=== PATIENT | male | born 1945 | race Caucasian/White ===

== ENCOUNTER 2016-08-15 08:14 | Inpatient (IN) | payer OTHER ==
[~2016-08-15] VITALS: Ht 177.8 cm; Wt 78.5 kg
[~2016-08-15 08:14] MED LIST: ACTOS15 MG PO; ACTOS45 MG PO; AMARYL1 MG PO; AMARYL2 MG PO; ANORO ELLIPTA1 EACH IH; CALCIUM ACETAT667 MG PO; COQ-10100 MG PO; COUMADIN2 MG PO; COUMADIN4 MG PO; ELIQUIS2.5 MG PO; ENDOCET 5-3251 EACH PO; FOLIC ACID-VIT1 EAC1 PO; FOLIC ACID0.4 MG PO; GABAPENTIN100 MG PO; GLIMEPIRIDE2 MG PO; NEURONTIN100 MG PO; OMEPRAZOLE20 MG PO; OMEPRAZOLE40 M1 PO; OXAYDO5 MG PO; PRAVASTATIN SOD40 MG PO; PROTONIX40 MG PO; PROVENTIL HFA6.7 GM IH; RENVELA800 MG PO; ROXICODONE5 MG PO; SENSIPAR30 MG PO; VALIUM5 MG PO; VITAMIN B12-FO1 EACH PO; VITAMIN C1000 M1 PO; VITAMIN D2000 UNI1 PO; WARFARIN SODIUM6 MG PO
[2016-08-15 12:46] VITALS: BP 97/43
[2016-08-15 12:49] LABS: POINT-OF-CARE METER ID UU14174212
[2016-08-15 14:02] LABS: METH RESISTANT S AUREUS PCR NEGATIVE (NEGATIVE); PROBE CHECK PASS; SPECIMEN PROCESSING CONTROL PASS
[2016-08-15 14:25] VITALS: BP 109/45
[2016-08-15 15:42] LABS: POINT-OF-CARE METER ID UU14174212
[2016-08-15 17:48] LABS: POINT-OF-CARE METER ID UU13113675; POINT-OF-CARE USER ID 515036437
[2016-08-15 18:21] LABS: HEMATOCRIT 30.2 % (38.0-50.0); MCHC 28.8 G/DL (30.0-36.0); MCV 97.1 FL (86-99); PLATELET COUNT 207 K/uL (156-360); RBC DIS.WIDTH-CV 19.8 % (11.8-14.6); RBC DIS.WIDTH-SD 68.8 % (39-53); RED BLOOD COUNT 3.11 M/uL (4.00-5.50); WHITE BLOOD COUNT 9.7 K/uL (4.1-10.2)
[2016-08-15 18:38] LABS: ANION GAP 9 MEQ/L (2-14); CHLORIDE 97 MEQ/L (99-109); POTASSIUM 4.4 MEQ/L (3.7-5.4); SAMPLE HEMOLYSIS CHECK 0; SAMPLE ICTERIC CHECK 0; SAMPLE LIPEMIA CHECK 0; SODIUM 141 MEQ/L (136-147)
[2016-08-15 18:43] LABS: GFR ESTIMATE (CALCULATED) 16 mL/min/; GLUCOSE 70 mg/dL (70-99); UREA NITROGEN (BUN) 25 mg/dL (9-23)
[2016-08-15 18:48] LABS: TROP-I INTERPRETATION NEGATIVE; TROPONIN-I 0.06 ng/mL (0.0-0.30)
[2016-08-15 19:54] LABS: POINT-OF-CARE METER ID UU13113675
[2016-08-15 21:20] VITALS: BP 94/57
[2016-08-15 21:55] VITALS: BP 94/57
[2016-08-16] VITALS (7 sets, daily range): BP systolic 84–123; BP diastolic 41–89
[2016-08-16 00:55] LABS: POINT-OF-CARE METER ID UU14188577
[2016-08-16 08:40] LABS: POINT-OF-CARE METER ID UU14188577
[2016-08-16 09:06] LABS: HEMATOCRIT 30.5 % (38.0-50.0); MCH 28.3 PG (29.0-34.0); MCHC 29.2 G/DL (30.0-36.0); MCV 96.8 FL (86-99); MEAN PLAT.VOLUME 10.5 uM^3 (9.0-12.4); PLATELET COUNT 191 K/uL (156-360); RBC DIS.WIDTH-CV 19.6 % (11.8-14.6); RBC DIS.WIDTH-SD 68.2 % (39-53); RED BLOOD COUNT 3.15 M/uL (4.00-5.50); WHITE BLOOD COUNT 9.4 K/uL (4.1-10.2)
[2016-08-16 09:32] LABS: ANION GAP 12 MEQ/L (2-14); CHLORIDE 96 MEQ/L (99-109); GFR ESTIMATE (CALCULATED) 13 mL/min/; POTASSIUM 4.7 MEQ/L (3.7-5.4); SAMPLE HEMOLYSIS CHECK 0; SAMPLE ICTERIC CHECK 0; SAMPLE LIPEMIA CHECK 0; SODIUM 141 MEQ/L (136-147); UREA NITROGEN (BUN) 33 mg/dL (9-23)
[2016-08-16 09:33] LABS: GLUCOSE 107 mg/dL (70-99)
[2016-08-16 16:37] LABS: POINT-OF-CARE METER ID UU14149397
[2016-08-16 22:43] LABS: POINT-OF-CARE METER ID UU14149397
[2016-08-17 00:11] VITALS: BP 101/42
[2016-08-17 05:09] VITALS: BP 101/55
[2016-08-17 06:18] LABS: POINT-OF-CARE METER ID UU14188577
[2016-08-17 08:45] VITALS: BP 93/52
[2016-08-17 09:23] LABS: POINT-OF-CARE METER ID UU14149397
[2016-08-17 09:47] LABS: POINT-OF-CARE METER ID UU14149397
[2016-08-17 10:23] LABS: POINT-OF-CARE METER ID UU14149397
[2016-08-17 11:47] LABS: POINT-OF-CARE METER ID UU13113675
[2016-08-17 13:50] LABS: MCH 27.5 PG (29.0-34.0); MCHC 29.2 G/DL (30.0-36.0); MCV 94.2 FL (86-99); MEAN PLAT.VOLUME 9.7 uM^3 (9.0-12.4); PLATELET COUNT 174 K/uL (156-360); RBC DIS.WIDTH-CV 19.8 % (11.8-14.6); RBC DIS.WIDTH-SD 67.6 % (39-53); RED BLOOD COUNT 2.76 M/uL (4.00-5.50); WHITE BLOOD COUNT 12.2 K/uL (4.1-10.2)
[2016-08-17 13:56] LABS: ANION GAP 14 MEQ/L (2-14); CHLORIDE 94 MEQ/L (99-109); GFR ESTIMATE (CALCULATED) 10 mL/min/; POTASSIUM 4.8 MEQ/L (3.7-5.4); SAMPLE HEMOLYSIS CHECK 0; SAMPLE ICTERIC CHECK 0; SAMPLE LIPEMIA CHECK 0; SODIUM 137 MEQ/L (136-147); UREA NITROGEN (BUN) 48 mg/dL (9-23)
[2016-08-17 13:57] LABS: GLUCOSE 75 mg/dL (70-99)
[2016-08-17 14:20] LABS: AHBS INDEX 6.98; HBSG INDEX 0.19; HEPATITIS B SURFACE ANTIBODY Nonreactive
[2016-08-17 18:25] VITALS: BP 107/49
[2016-08-17 19:15] VITALS: BP 100/39
[2016-08-17 20:00] VITALS: BP 81/43
[2016-08-17 20:11] LABS: POINT-OF-CARE METER ID UU14149397
[2016-08-17 20:16] LABS: GLUCOSE 133 mg/dL (70-99)
[2016-08-18] VITALS (26 sets, daily range): BP systolic 72–129; BP diastolic 22–68
[2016-08-18 06:22] LABS: POINT-OF-CARE METER ID UU14188577
[2016-08-18 07:19] LABS: POINT-OF-CARE METER ID UU14149397
[2016-08-18 07:41] LABS: GFR ESTIMATE (CALCULATED) 15 mL/min/
[2016-08-18 08:16] LABS: POINT-OF-CARE METER ID UU14188577
[2016-08-18 08:34] LABS: BASE EXCESS 4.3 mEq/L (-3 to +3); BICARBONATE 30.1 mEq/L (22-26); CARBOXY HGB 2.6 % (0-5); METHEMOGLOBIN 1.1 % (0-1.5); pH 7.37 (7.35-7.45)
[2016-08-18 08:35] LABS: COMMENTS - BLOOD GASES A+C+; DEVICE NC; O2 FLOW 2 L/MIN; PCO2 52 mm Hg (35-45); PO2 82 mm Hg (80-100); SITE LR
[2016-08-18 08:47] LABS: POINT-OF-CARE METER ID UU14188577
[2016-08-18 09:13] LABS: HEMATOCRIT 24.1 % (38.0-50.0); MCH 27.9 PG (29.0-34.0); MEAN PLAT.VOLUME 10.4 uM^3 (9.0-12.4); PLATELET COUNT 171 K/uL (156-360); RBC DIS.WIDTH-CV 19.7 % (11.8-14.6); RBC DIS.WIDTH-SD 68.7 % (39-53); RED BLOOD COUNT 2.51 M/uL (4.00-5.50); WHITE BLOOD COUNT 9.8 K/uL (4.1-10.2)
[2016-08-18 09:23] LABS: ANION GAP 13 MEQ/L (2-14); CHLORIDE 101 MEQ/L (99-109); POTASSIUM 4.3 MEQ/L (3.7-5.4); SODIUM 142 MEQ/L (136-147); UREA NITROGEN (BUN) 26 mg/dL (9-23)
[2016-08-18 09:34] LABS: GLUCOSE 76 mg/dL (70-99)
[2016-08-18 09:43] LABS: TROP-I INTERPRETATION NEGATIVE; TROPONIN-I 0.07 ng/mL (0.0-0.30)
[2016-08-18 11:24] LABS: POINT-OF-CARE METER ID UU14162636; POINT-OF-CARE USER ID 606021424
[2016-08-18 12:25] LABS: POINT-OF-CARE METER ID UU14188577
[2016-08-18 12:29] LABS: POINT-OF-CARE METER ID UU14188577
[2016-08-18 12:37] LABS: METH RESISTANT S AUREUS PCR NEGATIVE (NEGATIVE)
[2016-08-18 12:38] LABS: PROBE CHECK PASS; SPECIMEN PROCESSING CONTROL PASS
[2016-08-18 17:11] LABS: POINT-OF-CARE METER ID UU14162636
[2016-08-18 22:08] LABS: POINT-OF-CARE METER ID UU14162636
[2016-08-18 22:19] LABS: POINT-OF-CARE METER ID UU14162636
[2016-08-19] VITALS (24 sets, daily range): BP systolic 89–120; BP diastolic 20–45
[2016-08-19 04:53] LABS: HEMATOCRIT 31.1 % (38.0-50.0); MCH 28.4 PG (29.0-34.0); MCHC 29.9 G/DL (30.0-36.0); MCV 95.1 FL (86-99); MEAN PLAT.VOLUME 9.9 uM^3 (9.0-12.4); PLATELET COUNT 254 K/uL (156-360); RBC DIS.WIDTH-CV 19.1 % (11.8-14.6); RBC DIS.WIDTH-SD 62.6 % (39-53); RED BLOOD COUNT 3.27 M/uL (4.00-5.50); WHITE BLOOD COUNT 15.4 K/uL (4.1-10.2)
[2016-08-19 05:01] LABS: BASE EXCESS 2.5 mEq/L (-3 to +3); BICARBONATE 28.7 mEq/L (22-26); CARBOXY HGB 3.5 % (0-5); METHEMOGLOBIN 1.7 % (0-1.5); PCO2 52 mm Hg (35-45); pH 7.35 (7.35-7.45)
[2016-08-19 05:01] LABS: CHLORIDE 104 mEq/L (99-109); POTASSIUM 4.6 mEq/L (3.7-5.4); SODIUM 144 mEq/L (136-147)
[2016-08-19 05:02] LABS: COMMENTS - BLOOD GASES C+; DEVICE NC; O2 FLOW 5 L/MIN; PO2 51 mm Hg (80-100); SITE LR
[2016-08-19 05:04] LABS: GLUCOSE 12 mg/dL (70-99)
[2016-08-19 05:05] LABS: ANION GAP 15 MEQ/L (2-14)
[2016-08-19 05:07] LABS: GFR ESTIMATE (CALCULATED) 12 mL/min/
[2016-08-19 05:09] LABS: UREA NITROGEN (BUN) 40 mg/dL (9-23)
[2016-08-19 06:12] LABS: VANCOMYCIN, TROUGH 19.9 MCG/ML (10-20)
[2016-08-19 08:12] LABS: GLUCOSE 134 mg/dL (70-99)
[2016-08-19 12:02] LABS: POINT-OF-CARE METER ID UU13113731
[2016-08-19 14:59] LABS: POINT-OF-CARE METER ID UU13113731
[2016-08-19 16:37] LABS: POINT-OF-CARE METER ID UU13113731
[2016-08-19 17:22] LABS: POINT-OF-CARE METER ID UU13113731
[2016-08-20] VITALS (22 sets, daily range): BP systolic 45–109; BP diastolic 20–93
[2016-08-20 07:25] LABS: HEMATOCRIT 25.5 % (38.0-50.0); MCH 27.3 PG (29.0-34.0); MCHC 28.2 G/DL (30.0-36.0); MCV 96.6 FL (86-99); RBC DIS.WIDTH-CV 19.3 % (11.8-14.6); RBC DIS.WIDTH-SD 67.3 % (39-53); RED BLOOD COUNT 2.64 M/uL (4.00-5.50)
[2016-08-20 07:54] LABS: WHITE BLOOD COUNT 9.4 K/uL (4.1-10.2)
[2016-08-20 07:55] LABS: ANION GAP 13 MEQ/L (2-14); CHLORIDE 100 MEQ/L (99-109); DIRECT BILIRUBIN 0.2 mg/dL (0.0-0.3); POTASSIUM 4.5 MEQ/L (3.7-5.4); SAMPLE HEMOLYSIS CHECK 0; SAMPLE ICTERIC CHECK 0; SAMPLE LIPEMIA CHECK 0; SODIUM 140 MEQ/L (136-147); TOTAL BILIRUBIN 0.5 MG/DL (0.0-1.0)
[2016-08-20 07:58] LABS: PLATELET COUNT 167 K/uL (156-360)
[2016-08-20 08:13] LABS: ALKALINE PHOSPHATASE 93 IU/L (3-129); GFR ESTIMATE (CALCULATED) 15 mL/min/; GLUCOSE 125 mg/dL (70-99); UREA NITROGEN (BUN) 30 mg/dL (9-23)
[2016-08-20 08:26] LABS: POINT-OF-CARE METER ID UU13113731
[2016-08-20 09:49] LABS: VANCOMYCIN, TROUGH 12.1 MCG/ML (10-20)
[2016-08-20 11:03] LABS: POINT-OF-CARE METER ID UU13113731
[2016-08-20 16:32] LABS: BICARBONATE 24.9 mEq/L (22-26); CARBOXY HGB 1.1 % (0-5); METHEMOGLOBIN 0 % (0-1.5); PCO2 53 mm Hg (35-45)
[2016-08-20 16:33] LABS: COMMENTS - BLOOD GASES A+C+; DEVICE 50; MODE VM; O2 FLOW 12 L/MIN; PO2 118 mm Hg (80-100); SITE LR; pH 7.28 (7.35-7.45)
[2016-08-20 16:52] LABS: HEMATOCRIT 32.1 % (38.0-50.0); MCHC 30.2 G/DL (30.0-36.0); MCV 95.8 FL (86-99); MEAN PLAT.VOLUME 10.4 uM^3 (9.0-12.4); PLATELET COUNT 256 K/uL (156-360); RBC DIS.WIDTH-CV 18.7 % (11.8-14.6); RBC DIS.WIDTH-SD 64.4 % (39-53); RED BLOOD COUNT 3.35 M/uL (4.00-5.50); WHITE BLOOD COUNT 18.5 K/uL (4.1-10.2)
[2016-08-20 16:55] LABS: PROTHROMBIN TIME 25.8 (9.2-11.2); PTT 40.8 (25-32)
[2016-08-20 17:06] LABS: INTER. NORMALIZED RATIO 2.5
[2016-08-20 17:21] LABS: ALKALINE PHOSPHATASE 95 IU/L (3-129); ANION GAP 13 MEQ/L (2-14); CHLORIDE 98 MEQ/L (99-109); GFR ESTIMATE (CALCULATED) 14 mL/min/; GLUCOSE 133 mg/dL (70-99); POTASSIUM 4.9 MEQ/L (3.7-5.4); SAMPLE HEMOLYSIS CHECK 0; SAMPLE ICTERIC CHECK 0; SAMPLE LIPEMIA CHECK 0; SODIUM 136 MEQ/L (136-147); UREA NITROGEN (BUN) 34 mg/dL (9-23)
[2016-08-20 17:23] LABS: TOTAL BILIRUBIN 1.1 MG/DL (0.0-1.0)
== END 2016-08-20 22:52 | DRG 239 ==
LOC: 2SOUTH 08:14 → 4WEST 12:14 → 2SOUTH 12:14 → 3EAST 12:14 → 2SOUTH 12:22 → 3EAST 21:06 → 4WEST 08-18 10:49
PROVIDERS: Hospitalist; Internal Medicine; Internal Medicine Critical Care Medicine; Internal Medicine Nephrology; Surgery
PROC: 0Y6D0Z2 Detachment at Left Upper Leg, Mid, Open Approach (ICD-10-PCS; principal; 2016-08-15)
PROC: 5A1D60Z (ICD-10-PCS; 2016-08-17)
PROC: 03170ZD Bypass Right Brachial Artery to Upper Arm Vein, Open Approach (ICD-10-PCS; 2016-08-17)
PROC: 02H633Z Insertion of Infusion Device into Right Atrium, Percutaneous Approach (ICD-10-PCS; 2016-08-17)
PROC: 30233N1 Transfusion of Nonautologous Red Blood Cells into Peripheral Vein, Percutaneous Approach (ICD-10-PCS; 2016-08-18)
DX: I70.262 Atherosclerosis of native arteries of extremities with gangrene, left leg (principal); J18.9 Pneumonia, unspecified organism; R57.9 Shock, unspecified; J80 Acute respiratory distress syndrome; N18.6 End stage renal disease; J44.0 Chronic obstructive pulmonary disease with (acute) lower respiratory infection; I48.91 Unspecified atrial fibrillation; E87.2 Acidosis; T82.898A Other specified complication of vascular prosthetic devices, implants and grafts, initial encounter; Z66 Do not resuscitate; Z51.5 Encounter for palliative care; R41.0 Disorientation, unspecified; T40.605A Adverse effect of unspecified narcotics, initial encounter; D64.9 Anemia, unspecified; Y95 Nosocomial condition; E11.649 Type 2 diabetes mellitus with hypoglycemia without coma; I25.10 Atherosclerotic heart disease of native coronary artery without angina pectoris; I12.0 Hypertensive chronic kidney disease with stage 5 chronic kidney disease or end stage renal disease; E78.5 Hyperlipidemia, unspecified; E11.42 Type 2 diabetes mellitus with diabetic polyneuropathy; Z89.511 Acquired absence of right leg below knee; I87.8 Other specified disorders of veins; G25.81 Restless legs syndrome; Z95.5 Presence of coronary angioplasty implant and graft; Z89.512 Acquired absence of left leg below knee; Z87.891 Personal history of nicotine dependence; T81.89XA Other complications of procedures, not elsewhere classified, initial encounter; E11.21 Type 2 diabetes mellitus with diabetic nephropathy; E11.319 Type 2 diabetes mellitus with unspecified diabetic retinopathy without macular edema; Z99.2 Dependence on renal dialysis; Z99.81 Dependence on supplemental oxygen; E83.51 Hypocalcemia
CPT/HCPCS: 36600; 71010; 80048; 80053; 80069; 80076; 80202; 82533 91; 82565; 82803; 82948; 83605; 84484; 84999; 85027; 85610; 85730; 86706; 86850; 86900; 86901; 86920; 87040; 87340; 87641; 88307; 93005; 93306; 94640; 94640 76; 94799; 99202; C2628; J0330; J0690; J1170; J1630; J1644; J1815; J1885; J2060; J2270; J2310; J2405; J2543; J2720; J3010; J3370; J7030; J7040; J7050; J7070; P9016; P9045; P9047; S0028